=== PATIENT | male | born 1955 | race African-American/Black ===

== ENCOUNTER 2017-03-30 10:51 | Observation (INO) | payer MEDICARE, MEDICAID ==
[~2017-03-30] VITALS: Ht 188 cm; Wt 80.3 kg
[2017-03-30 13:30] LABS: EOSINOPHILS % 1.6 % (0.0-5.0); HEMOGLOBIN. 11.1 g/dL (14.0-18.0); LYMPHOCYTES % 15.4 % (20.0-50.0); MEAN CORPUSCULAR HEMOGLOBIN 32.7 pg (28.0-32.0); MEAN CORPUSCULAR VOLUME 97.1 fL (80.0-94.0); MEAN PLATELET VOLUME 7.9 fl (7.4-10.4); MONOCYTES % 9.3 % (2.0-8.0); NEUTROPHILS % 72.7 % (40.0-76.0); PLATELET 178 x1000/uL (130-400); RED BLOOD CELL COUNT 3.39 mill/uL (4.7-6.1); RED CELL DISTRIBUTION WIDTH 16.4 % (11.6-14.6)
[2017-03-30 13:39] LABS: INR 1.1; PROTHROMBIN TIME 11.1 sec
[2017-03-30 13:46] LABS: CARBON DIOXIDE 34 mEq/L (21-32); CHLORIDE 90 mEq/L (98-107)
[2017-03-30] MEDS ORDERED: ACETAMINOPHEN 325MG TABLET PO PRN (16:00)
[2017-03-30] MEDS ORDERED: IPRATROPIUM/ALBUTEROL 0.5-3(2.5)MG/3ML NEB INH PRN (16:00)
[2017-03-30] MEDS ORDERED: CLONIDINE 0.1MG TABLET PO PRN (16:00)
[2017-03-30] MEDS ORDERED: ONDANSETRON HCL 4MG/2ML VIAL IV PRN (16:00)
[2017-03-30] MEDS: PANTOPRAZOLE SODIUM 40 MG/VIAL IV SCH (16:15)
[2017-03-30 22:00] VITALS: BP 128/78
[2017-03-30] MEDS ORDERED: ASPI-864 PO (23:59)
[2017-03-31] VITALS: BP 108/64
[2017-03-31] MEDS ORDERED: NITROGLYCERIN 0.4MG TABLET SL SL PRN
[2017-03-31] MEDS ORDERED: CINACALCET HCL 30MG TABLET PO SCH
[2017-03-31] MEDS ORDERED: POTASSIUM CHLORIDE 20MEQ TABLET SR PO NR
[2017-03-31] MEDS ORDERED: METO-296 PO (00:17)
[2017-03-31] MEDS ORDERED: CALCIUM ACETATE PO (00:17)
[2017-03-31] MEDS ORDERED: LISI-604 PO (00:17)
[2017-03-31] MEDS ORDERED: TOPI50TA PO (00:17)
[2017-03-31] MEDS ORDERED: NITR0.4T3 SL (00:17)
[2017-03-31] MEDS ORDERED: CINA30 PO (00:17)
[2017-03-31] MEDS ORDERED: CLOP75TA33 PO (00:17)
[2017-03-31] MEDS ORDERED: IBUP-1509 PO (00:17)
[2017-03-31 04:00] VITALS: BP 103/67
[2017-03-31 06:59] LABS: BASOPHILS % 0.5 % (0.0-2.0); EOSINOPHILS % 1.1 % (0.0-5.0); HEMATOCRIT. 31.7 % (42.0-52.0); HEMOGLOBIN. 10.9 g/dL (14.0-18.0); LYMPHOCYTES % 9.1 % (20.0-50.0); MEAN CORPUSCULAR HEMOGLOBIN 33.4 pg (28.0-32.0); MEAN CORPUSCULAR VOLUME 97.2 fL (80.0-94.0); MONOCYTES % 6.3 % (2.0-8.0); PLATELET 175 x1000/uL (130-400); RED BLOOD CELL COUNT 3.26 mill/uL (4.7-6.1); RED CELL DISTRIBUTION WIDTH 16.5 % (11.6-14.6)
[2017-03-31 07:55] LABS: CARBON DIOXIDE 28 mEq/L (21-32); CHLORIDE 91 mEq/L (98-107); HDL CHOLESTEROL 58 mg/dL (40-59); LDL CHOLESTEROL 56 mg/dL (5-100); T4 FREE 0.87 ng/dL (0.76-1.46)
[2017-03-31 08:08] VITALS: BP 98/67
[2017-03-31] MEDS: PANTOPRAZOLE SODIUM 40 MG/VIAL IV SCH (08:11)
[2017-03-31] MEDS: CALCIUM ACETATE 667MG CAPSULE PO SCH ×3 (08:11→18:10)
[2017-03-31] MEDS: LISINOPRIL 20MG TABLET PO SCH (09:00)
[2017-03-31] MEDS ORDERED: CALCIUM ACETATE PO SCH (09:00)
[2017-03-31] MEDS ORDERED: MEDICATION NOT ON FORMULARY EA (Metoprolol Succinate 25 MG) PO SCH (09:00)
[2017-03-31] MEDS: METOPROLOL TARTRATE 25MG TABLET PO SCH ×2 (09:00→20:47)
[2017-03-31 12:20] VITALS: BP 109/50
[2017-03-31 16:00] LABS: BASOPHILS % 0.8 % (0.0-2.0); EOSINOPHILS % 1.3 % (0.0-5.0); HEMATOCRIT. 32.2 % (42.0-52.0); HEMOGLOBIN. 10.9 g/dL (14.0-18.0); LYMPHOCYTES % 13.4 % (20.0-50.0); MEAN CORPUSCULAR HEMOGLOBIN 32.8 pg (28.0-32.0); MEAN CORPUSCULAR VOLUME 97.5 fL (80.0-94.0); MEAN PLATELET VOLUME 8.5 fl (7.4-10.4); NEUTROPHILS % 77.5 % (40.0-76.0); PLATELET 169 x1000/uL (130-400); RED BLOOD CELL COUNT 3.31 mill/uL (4.7-6.1); RED CELL DISTRIBUTION WIDTH 16.3 % (11.6-14.6)
[2017-03-31] MEDS ORDERED: HEMORRHOIDAL SUPP PR PRN (16:00)
[2017-03-31] MEDS ORDERED: DOCUSATE SODIUM 250MG CAPSULE PO PRN (16:00)
[2017-03-31 16:48] VITALS: BP 142/81
[2017-03-31 20:00] VITALS: BP 114/69
[2017-03-31] MEDS ORDERED: TOPIRAMATE 50 MG PO SCH (21:00)
[2017-03-31] MEDS ORDERED: TOPIRAMATE 25MG TABLET PO SCH (21:00)
[2017-04-01] VITALS: BP 115/78
[2017-04-01] MEDS: HYDROCODONE/ACETAMINOPHEN 5/325MG TABLET PO PRN ×4 (01:26→21:36)
[2017-04-01 04:00] VITALS: BP 109/66
[2017-04-01 08:12] VITALS: BP 122/59
[2017-04-01] MEDS: METOPROLOL TARTRATE 25MG TABLET PO SCH ×2 (08:59→20:45)
[2017-04-01] MEDS: LISINOPRIL 20MG TABLET PO SCH (08:59)
[2017-04-01] MEDS: PANTOPRAZOLE SODIUM 40 MG/VIAL IV SCH (09:11)
[2017-04-01] MEDS: CALCIUM ACETATE 667MG CAPSULE PO SCH ×3 (09:11→18:40)
[2017-04-01 11:18] VITALS: BP 127/76
[2017-04-01 16:00] VITALS: BP 122/69
[2017-04-01 16:33] LABS: BASOPHILS % 0.7 % (0.0-2.0); EOSINOPHILS % 1.8 % (0.0-5.0); HEMOGLOBIN. 10.7 g/dL (14.0-18.0); LYMPHOCYTES % 16.7 % (20.0-50.0); MEAN CORPUSCULAR HEMOGLOBIN 32.8 pg (28.0-32.0); MEAN CORPUSCULAR VOLUME 97.7 fL (80.0-94.0); MEAN PLATELET VOLUME 8.9 fl (7.4-10.4); MONOCYTES % 10.3 % (2.0-8.0); NEUTROPHILS % 70.5 % (40.0-76.0); PLATELET 175 x1000/uL (130-400); RED BLOOD CELL COUNT 3.27 mill/uL (4.7-6.1); RED CELL DISTRIBUTION WIDTH 16.5 % (11.6-14.6)
[2017-04-01] MEDS ORDERED: BISACODYL 10MG SUPP PR PRN (17:00)
[2017-04-01] MEDS ORDERED: LEVOFLOXACIN 250MG PREMIX 50 ML IV SCH (18:30)
[2017-04-01 20:00] VITALS: BP 116/99
[2017-04-01 20:49] LABS: CHLORIDE 103 mEq/L (98-107)
[2017-04-01 20:57] LABS: CARBON DIOXIDE 25 mEq/L (21-32)
[2017-04-02] VITALS (7 sets, daily range): BP systolic 103–143; BP diastolic 59–82
[2017-04-02] MEDS ORDERED: LEVOFLOXACIN 250MG PREMIX 50 ML IV SCH ×2 (00:30→02:00)
[2017-04-02] MEDS: LISINOPRIL 20MG TABLET PO SCH (08:23)
[2017-04-02] MEDS: PANTOPRAZOLE SODIUM 40 MG/VIAL IV SCH (08:23)
[2017-04-02] MEDS: METOPROLOL TARTRATE 25MG TABLET PO SCH (08:24)
[2017-04-02] MEDS: CALCIUM ACETATE 667MG CAPSULE PO SCH ×3 (08:24→18:18)
[2017-04-02] MEDS ORDERED: POTASSIUM CHLORIDE 20MEQ TABLET SR PO SCH (09:00)
[2017-04-02] MEDS ORDERED: PROT40 PO (19:27)
[2017-04-02] MEDS ORDERED: HYDR30CR80 TP (19:27)
== END 2017-04-02 20:12 | disposition home or self-care (01) ==
LOC: ER 11:40 → INTOOBSV 15:45 → 6WST 15:45 → EDBEDREQ 16:09 → ENRESERV 19:30 → 6WST 04-01 18:51
PROVIDERS: ADMIT Internal Medicine; ATTEND Internal Medicine
DX: K92.1 Melena (principal); N18.6 End stage renal disease; I12.0 Hypertensive chronic kidney disease with stage 5 chronic kidney disease or end stage renal disease; E11.22 Type 2 diabetes mellitus with diabetic chronic kidney disease; D64.9 Anemia, unspecified; I25.2 Old myocardial infarction; I25.10 Atherosclerotic heart disease of native coronary artery without angina pectoris; Z79.82 Long term (current) use of aspirin; Z87.891 Personal history of nicotine dependence; Z99.2 Dependence on renal dialysis
CPT/HCPCS: 36415; 74176; 78278; 80053; 80061; 82270; 83690; 84439; 84443; 85025; 85610; 86850; 86900; 86901; 87493; 96365; 96375; 96376; 99285; A9560; C1893; C9113; G0378; J1956; J7030; J7050